=== PATIENT | male | born 1950 | race Caucasian/White ===

== ENCOUNTER → 2017-11-22 | Outpatient (CLI) | payer OTHER | LOC: CIMAGING 08:25 | PROVIDERS: ATTEND Internal Medicine | DX: M25.842 Other specified joint disorders, left hand (principal); M81.6 Localized osteoporosis [Lequesne]; M25.871 Other specified joint disorders, right ankle and foot; M25.872 Other specified joint disorders, left ankle and foot; M25.471 Effusion, right ankle; M25.472 Effusion, left ankle | CPT/HCPCS: 73130-PO; 73610-PO ==

== ENCOUNTER → 2017-12-20 | Outpatient (CLI) | payer OTHER | LOC: FIMAGING 15:58 | PROVIDERS: ATTEND Internal Medicine | DX: M25.571 Pain in right ankle and joints of right foot (principal) ==